=== PATIENT | male | born 1945 | race Caucasian/White ===

== ENCOUNTER 2016-12-12 05:51 | Day surgery (SDC) | payer OTHER ==
[~2016-12-12] VITALS: Ht 170.2 cm; Wt 99.8 kg
[~2016-12-12 05:51] MED LIST: AMLODIPINE BES2.5 MG PO; CARVEDILOL25 MG PO; CILOSTAZOL100 MG PO; IRBESARTAN300 MG PO; KLOR-CON M2020 MEQ PO; MONTELUKAST SOD10 MG PO; PROCARDIA XL60 MG PO; ROSUVASTATIN CA20 MG PO; SERTRALINE HCL50 MG PO; VITAMIN D31000 UNIT PO
== END 2016-12-12 16:00 | disposition home or self-care (01) ==
LOC: CATH 05:51
PROC: 047A3DZ Dilation of Left Renal Artery with Intraluminal Device, Percutaneous Approach (ICD-10-PCS; principal; 2016-12-12)
DX: I70.1 Atherosclerosis of renal artery (principal); N28.9 Disorder of kidney and ureter, unspecified; I10 Essential (primary) hypertension; E78.5 Hyperlipidemia, unspecified; I73.9 Peripheral vascular disease, unspecified
CPT/HCPCS: C1725; C1750; C1760; C1769; C1894; J1644; J2250; J3010; S0020

== ENCOUNTER → 2017-07-16 | Outpatient (CLI) | payer MEDICARE, OTHER | END | disposition home or self-care (01) | LOC: CDC 16:07 | DX: I45.4 Nonspecific intraventricular block (principal); R94.31 Abnormal electrocardiogram [ECG] [EKG] | CPT/HCPCS: 93000 ==

== ENCOUNTER → 2017-09-05 | Outpatient (CLI) | payer MEDICARE, OTHER | END | disposition home or self-care (01) | LOC: CDC 14:42 | DX: Z01.810 Encounter for preprocedural cardiovascular examination (principal); R94.31 Abnormal electrocardiogram [ECG] [EKG] | CPT/HCPCS: 93000 ==

== ENCOUNTER → 2017-10-23 | Outpatient (CLI) | payer MEDICARE, OTHER | END | disposition home or self-care (01) | LOC: CDC 15:58 | DX: Z01.810 Encounter for preprocedural cardiovascular examination (principal); R94.31 Abnormal electrocardiogram [ECG] [EKG] | CPT/HCPCS: 93000 ==

== ENCOUNTER 2017-12-16 22:19 | Inpatient (IN) | payer OTHER ==
[~2017-12-16] VITALS: Ht 170.2 cm; Wt 99.5 kg
[~2017-12-16 22:19] MED LIST changes: +FLOMAX0.4 MG PO; +HYDROCODON-ACE1 EAC7 PO; +KLOR-CON SPRIN10 MEQ PO; +PLAVIX75 MG PO; +PREDNISONE50 MG PO; +SINGULAIR10 MG PO
[2017-12-17] VITALS (11 sets, daily range): BP systolic 136–188; BP diastolic 60–81
[2017-12-17 14:09] LABS: HEMOGLOBIN 9.3 G/DL (12.5-16.6); MCH 27.5 PG (29.0-34.0); MCHC 32.1 G/DL (30.0-36.0); MCV 85.8 FL (86-99); PLATELET COUNT 196 K/uL (156-360); RBC DIS.WIDTH-CV 14.4 % (11.8-14.6); RBC DIS.WIDTH-SD 44.1 % (39-53); RED BLOOD COUNT 3.38 M/uL (4.00-5.50); WHITE BLOOD COUNT 5.3 K/uL (4.1-10.2)
[2017-12-17 14:32] LABS: TROP-I INTERPRETATION NEGATIVE; TROPONIN-I 0.03 ng/mL (0.0-0.30)
[2017-12-17 14:34] LABS: CHLORIDE 108 MEQ/L (99-109); CREATININE 2.9 MG/DL (0.6-1.3); GFR ESTIMATE (CALCULATED) 23 mL/min/ (58.99-99999); GLUCOSE 168 mg/dL (70-99); POTASSIUM 4.2 MEQ/L (3.7-5.4); SODIUM 141 MEQ/L (136-147); UREA NITROGEN (BUN) 35 mg/dL (9-23)
[2017-12-18] VITALS (10 sets, daily range): BP systolic 147–198; BP diastolic 61–103
[2017-12-18 04:58] LABS: HEMATOCRIT 27.5 % (38.0-50.0); HEMOGLOBIN 9.2 G/DL (12.5-16.6); MCH 28.3 PG (29.0-34.0); MCHC 33.5 G/DL (30.0-36.0); MCV 84.6 FL (86-99); PLATELET COUNT 193 K/uL (156-360); RBC DIS.WIDTH-CV 14.5 % (11.8-14.6); RBC DIS.WIDTH-SD 44.4 % (39-53); RED BLOOD COUNT 3.25 M/uL (4.00-5.50); WHITE BLOOD COUNT 6.1 K/uL (4.1-10.2)
[2017-12-18 05:06] LABS: CHLORIDE 105 mEq/L (99-109); POTASSIUM 3.7 mEq/L (3.7-5.4); SODIUM 140 mEq/L (136-147)
[2017-12-18 05:12] LABS: CREATININE 3.2 mg/dL (0.6-1.3); GFR ESTIMATE (CALCULATED) 20 mL/min/ (58.99-99999)
[2017-12-18 05:13] LABS: GLUCOSE 117 mg/dL (70-99); UREA NITROGEN (BUN) 41 mg/dL (9-23)
[2017-12-18 05:18] LABS: TROP-I INTERPRETATION NEGATIVE; TROPONIN-I 0.04 ng/mL (0.0-0.30)
[2017-12-19 03:30] VITALS: BP 158/69
[2017-12-19 05:34] LABS: BASOPHIL (%) 0.4 % (0-1); EOSINOPHIL (%) 4.4 % (0-5); EOSINOPHIL COUNT 0.3 K/uL (0-0.3); HEMATOCRIT 26.3 % (38.0-50.0); HEMOGLOBIN 8.5 G/DL (12.5-16.6); IMMATURE GRANULOCYTE (%) 0.4 % (0.0-0.7); LYMPHOCYTE (%) 16.4 % (15-42); LYMPHOCYTE COUNT 1.2 K/uL (1.0-2.8); MCH 27.7 PG (29.0-34.0); MCHC 32.3 G/DL (30.0-36.0); MCV 85.7 FL (86-99); MONOCYTE (%) 12.7 % (3-12); MONOCYTE COUNT 0.9 K/uL (0-0.8); NEUTROPHIL (%) 65.7 % (45-76); NEUTROPHIL COUNT 4.8 K/uL (1.8-6.4); PLATELET COUNT 158 K/uL (156-360); RBC DIS.WIDTH-CV 14.6 % (11.8-14.6); RBC DIS.WIDTH-SD 45.3 % (39-53); RED BLOOD COUNT 3.07 M/uL (4.00-5.50); WHITE BLOOD COUNT 7.3 K/uL (4.1-10.2)
[2017-12-19 08:50] VITALS: BP 139/65
[2017-12-19 11:00] VITALS: BP 150/69
[2017-12-19 16:00] VITALS: BP 165/75
[2017-12-19 22:14] VITALS: BP 125/61
[2017-12-20] VITALS (7 sets, daily range): BP systolic 116–163; BP diastolic 56–72
[2017-12-20 19:10] LABS: HEMATOCRIT 23.1 % (38.0-50.0); HEMOGLOBIN 7.7 G/DL (12.5-16.6); MCH 27.7 PG (29.0-34.0); MCHC 33.3 G/DL (30.0-36.0); MCV 83.1 FL (86-99); PLATELET COUNT 186 K/uL (156-360); RBC DIS.WIDTH-CV 14.3 % (11.8-14.6); RBC DIS.WIDTH-SD 43.4 % (39-53); RED BLOOD COUNT 2.78 M/uL (4.00-5.50); WHITE BLOOD COUNT 12.5 K/uL (4.1-10.2)
[2017-12-20 19:32] LABS: CHLORIDE 104 MEQ/L (99-109); GFR ESTIMATE (CALCULATED) 14 mL/min/ (58.99-99999); GLUCOSE 160 mg/dL (70-99); POTASSIUM 3.4 MEQ/L (3.7-5.4); SODIUM 134 MEQ/L (136-147); UREA NITROGEN (BUN) 50 mg/dL (9-23)
[2017-12-20 19:40] LABS: CREATININE 4.4 MG/DL (0.6-1.3)
[2017-12-21] VITALS (7 sets, daily range): BP systolic 110–135; BP diastolic 54–63
[2017-12-21 06:11] LABS: HEMATOCRIT 23.1 % (38.0-50.0); HEMOGLOBIN 7.7 G/DL (12.5-16.6); MCH 28.1 PG (29.0-34.0); MCHC 33.3 G/DL (30.0-36.0); MCV 84.3 FL (86-99); PLATELET COUNT 188 K/uL (156-360); RBC DIS.WIDTH-CV 14.5 % (11.8-14.6); RBC DIS.WIDTH-SD 44.4 % (39-53); RED BLOOD COUNT 2.74 M/uL (4.00-5.50); WHITE BLOOD COUNT 12.2 K/uL (4.1-10.2)
[2017-12-21 06:37] LABS: CHLORIDE 104 MEQ/L (99-109); CREATININE 4.7 MG/DL (0.6-1.3); GFR ESTIMATE (CALCULATED) 13 mL/min/ (58.99-99999); GLUCOSE 132 mg/dL (70-99); POTASSIUM 3.5 MEQ/L (3.7-5.4); SODIUM 135 MEQ/L (136-147); UREA NITROGEN (BUN) 57 mg/dL (9-23)
[2017-12-21 08:47] LABS: TROP-I INTERPRETATION NEGATIVE; TROPONIN-I 0.04 ng/mL (0.0-0.30)
[2017-12-22 04:19] VITALS: BP 140/74
[2017-12-22 05:45] LABS: BASOPHIL (%) 0.3 % (0-1); EOSINOPHIL (%) 0 % (0-5); HEMATOCRIT 25.8 % (38.0-50.0); HEMOGLOBIN 8.3 G/DL (12.5-16.6); IMMATURE GRANULOCYTE (%) 0.7 % (0.0-0.7); LYMPHOCYTE (%) 3.9 % (15-42); LYMPHOCYTE COUNT 0.5 K/uL (1.0-2.8); MCH 26.9 PG (29.0-34.0); MCHC 32.2 G/DL (30.0-36.0); MCV 83.5 FL (86-99); MONOCYTE (%) 2.6 % (3-12); MONOCYTE COUNT 0.3 K/uL (0-0.8); NEUTROPHIL (%) 92.5 % (45-76); NEUTROPHIL COUNT 10.6 K/uL (1.8-6.4); PLATELET COUNT 232 K/uL (156-360); RBC DIS.WIDTH-CV 14.5 % (11.8-14.6); RBC DIS.WIDTH-SD 43.8 % (39-53); RED BLOOD COUNT 3.09 M/uL (4.00-5.50); WHITE BLOOD COUNT 11.5 K/uL (4.1-10.2)
[2017-12-22 06:17] LABS: CHLORIDE 103 MEQ/L (99-109); CREATININE 5.4 MG/DL (0.6-1.3); GFR ESTIMATE (CALCULATED) 11 mL/min/ (58.99-99999); GLUCOSE 181 mg/dL (70-99); MAGNESIUM 2.3 mg/dl (1.3-2.7); PHOSPHORUS 6.6 mg/dL (2.5-4.9); SODIUM 137 MEQ/L (136-147); UREA NITROGEN (BUN) 70 mg/dL (9-23); URIC ACID 10.3 mg/dL (3.1-9.2)
[2017-12-22 06:19] LABS: POTASSIUM 4.5 MEQ/L (3.7-5.4)
[2017-12-22 06:21] LABS: TROP-I INTERPRETATION NEGATIVE; TROPONIN-I 0.07 ng/mL (0.0-0.30)
[2017-12-22 07:31] VITALS: BP 146/67
[2017-12-22 08:33] LABS: APPEARANCE CLOUDY ((CLEAR)); BILIRUBIN NEGATIVE; BLOOD SMALL; COLOR YELLOW ((YELLOW)); GLUCOSE (STRIP) 50; KETONES NEGATIVE; LEUKOCYTES NEGATIVE; NITRITE NEGATIVE; PROTEIN (STRIP) 100; SPECIFIC GRAVITY 1.012 (1.000-1.030); UROBILINOGEN 0.2 MG/DL (0.2-1.0)
[2017-12-22 08:53] LABS: RED BLOOD CELLS 0-5 /HPF (0-5); WHITE BLOOD CELLS 0-5 /HPF (0-5)
[2017-12-22 08:54] LABS: AMORPHOUS URATES CRYSTALS 1+; BACTERIA 1+ /HPF; COARSE GRANULAR CASTS 0-5 /LPF; EPITHELIAL CELLS 1+ /HPF; FINE GRANULAR CASTS 0-5 /LPF; HYALINE CASTS 0-5 /LPF; MUCUS NONE SEEN /LPF
[2017-12-22 08:55] LABS: UR CREATININE CONCENTRATION 116.8 MG/DL
[2017-12-22 10:49] VITALS: BP 143/67
[2017-12-22 16:10] VITALS: BP 161/70
[2017-12-22 19:56] VITALS: BP 161/73
[2017-12-22 23:37] VITALS: BP 156/69
[2017-12-23 03:51] VITALS: BP 134/88
[2017-12-23 07:45] VITALS: BP 179/75
[2017-12-23 10:04] LABS: CHLORIDE 109 MEQ/L (99-109); POTASSIUM 3.9 MEQ/L (3.7-5.4); SODIUM 142 MEQ/L (136-147)
[2017-12-23 10:11] LABS: CREATININE 4.8 MG/DL (0.6-1.3); GFR ESTIMATE (CALCULATED) 13 mL/min/ (58.99-99999); GLUCOSE 108 mg/dL (70-99); UREA NITROGEN (BUN) 66 mg/dL (9-23)
[2017-12-23 15:36] VITALS: BP 123/59
[2017-12-23 16:24] VITALS: BP 176/81
[2017-12-23 19:26] VITALS: BP 167/79
[2017-12-24] VITALS (7 sets, daily range): BP systolic 145–188; BP diastolic 74–83
[2017-12-24 06:21] LABS: BASOPHIL COUNT 0.1 K/uL (0-0.1); EOSINOPHIL (%) 4.6 % (0-5); EOSINOPHIL COUNT 0.4 K/uL (0-0.3); HEMATOCRIT 29.6 % (38.0-50.0); HEMOGLOBIN 9.8 G/DL (12.5-16.6); IMMATURE GRANULOCYTE (%) 1.2 % (0.0-0.7); LYMPHOCYTE (%) 15.1 % (15-42); LYMPHOCYTE COUNT 1.2 K/uL (1.0-2.8); MCH 27.8 PG (29.0-34.0); MCHC 33.1 G/DL (30.0-36.0); MCV 84.1 FL (86-99); MONOCYTE (%) 10.5 % (3-12); MONOCYTE COUNT 0.8 K/uL (0-0.8); NEUTROPHIL (%) 67.6 % (45-76); NEUTROPHIL COUNT 5.4 K/uL (1.8-6.4); RBC DIS.WIDTH-CV 14.7 % (11.8-14.6); RBC DIS.WIDTH-SD 45.1 % (39-53); RED BLOOD COUNT 3.52 M/uL (4.00-5.50)
[2017-12-24 06:30] LABS: CHLORIDE 108 MEQ/L (99-109); CREATININE 4.2 MG/DL (0.6-1.3); GFR ESTIMATE (CALCULATED) 15 mL/min/ (58.99-99999); GLUCOSE 101 mg/dL (70-99); POTASSIUM 3.4 MEQ/L (3.7-5.4); SODIUM 143 MEQ/L (136-147); UREA NITROGEN (BUN) 60 mg/dL (9-23)
[2017-12-24 06:47] LABS: PLATELET COUNT 327 K/uL (156-360)
[2017-12-25] VITALS (7 sets, daily range): BP systolic 145–187; BP diastolic 70–88
[2017-12-25 06:59] LABS: BASOPHIL (%) 0.8 % (0-1); BASOPHIL COUNT 0.1 K/uL (0-0.1); EOSINOPHIL (%) 5.5 % (0-5); EOSINOPHIL COUNT 0.4 K/uL (0-0.3); HEMATOCRIT 26.9 % (38.0-50.0); HEMOGLOBIN 8.7 G/DL (12.5-16.6); IMMATURE GRANULOCYTE (%) 1.3 % (0.0-0.7); LYMPHOCYTE (%) 16.6 % (15-42); LYMPHOCYTE COUNT 1.3 K/uL (1.0-2.8); MCH 27.3 PG (29.0-34.0); MCHC 32.3 G/DL (30.0-36.0); MCV 84.3 FL (86-99); MONOCYTE (%) 9.6 % (3-12); MONOCYTE COUNT 0.8 K/uL (0-0.8); NEUTROPHIL (%) 66.2 % (45-76); NEUTROPHIL COUNT 5.2 K/uL (1.8-6.4); PLATELET COUNT 309 K/uL (156-360); RBC DIS.WIDTH-CV 14.4 % (11.8-14.6); RBC DIS.WIDTH-SD 44.7 % (39-53); RED BLOOD COUNT 3.19 M/uL (4.00-5.50); WHITE BLOOD COUNT 7.8 K/uL (4.1-10.2)
[2017-12-25 07:22] LABS: CHLORIDE 108 MEQ/L (99-109); CREATININE 3.6 MG/DL (0.6-1.3); GFR ESTIMATE (CALCULATED) 18 mL/min/ (58.99-99999); GLUCOSE 151 mg/dL (70-99); POTASSIUM 3.4 MEQ/L (3.7-5.4); SODIUM 146 MEQ/L (136-147); UREA NITROGEN (BUN) 50 mg/dL (9-23)
[2017-12-26 00:10] VITALS: BP 160/74
[2017-12-26 03:23] VITALS: BP 166/72
[2017-12-26 05:07] LABS: BASOPHIL (%) 0.8 % (0-1); BASOPHIL COUNT 0.1 K/uL (0-0.1); EOSINOPHIL (%) 5.5 % (0-5); EOSINOPHIL COUNT 0.6 K/uL (0-0.3); HEMATOCRIT 31.2 % (38.0-50.0); HEMOGLOBIN 9.9 G/DL (12.5-16.6); IMMATURE GRANULOCYTE (%) 1.7 % (0.0-0.7); LYMPHOCYTE (%) 17.6 % (15-42); LYMPHOCYTE COUNT 1.8 K/uL (1.0-2.8); MCH 27.1 PG (29.0-34.0); MCHC 31.7 G/DL (30.0-36.0); MCV 85.5 FL (86-99); MONOCYTE (%) 7.6 % (3-12); MONOCYTE COUNT 0.8 K/uL (0-0.8); NEUTROPHIL (%) 66.8 % (45-76); NEUTROPHIL COUNT 6.7 K/uL (1.8-6.4); PLATELET COUNT 346 K/uL (156-360); RBC DIS.WIDTH-CV 14.6 % (11.8-14.6); RBC DIS.WIDTH-SD 45.3 % (39-53); RED BLOOD COUNT 3.65 M/uL (4.00-5.50); WHITE BLOOD COUNT 10.1 K/uL (4.1-10.2)
[2017-12-26 05:39] LABS: CHLORIDE 106 MEQ/L (99-109); CREATININE 3.4 MG/DL (0.6-1.3); GFR ESTIMATE (CALCULATED) 19 mL/min/ (58.99-99999); GLUCOSE 149 mg/dL (70-99); POTASSIUM 3.8 MEQ/L (3.7-5.4); SODIUM 143 MEQ/L (136-147); UREA NITROGEN (BUN) 44 mg/dL (9-23)
[2017-12-26 07:39] VITALS: BP 191/85
[2017-12-26 16:30] VITALS: BP 170/77
[2017-12-26 19:27] VITALS: BP 170/76
[2017-12-26 23:29] VITALS: BP 148/68
[2017-12-27 05:05] VITALS: BP 126/60
[2017-12-27 06:12] LABS: CHLORIDE 107 MEQ/L (99-109); CREATININE 3.3 MG/DL (0.6-1.3); GFR ESTIMATE (CALCULATED) 20 mL/min/ (58.99-99999); GLUCOSE 137 mg/dL (70-99); POTASSIUM 3.7 MEQ/L (3.7-5.4); SODIUM 145 MEQ/L (136-147); UREA NITROGEN (BUN) 37 mg/dL (9-23)
[2017-12-27 08:11] VITALS: BP 125/70
[2017-12-27 11:59] VITALS: BP 139/66
[2017-12-27 17:16] VITALS: BP 167/71
[2017-12-27 20:10] VITALS: BP 165/72
[2017-12-27 23:25] VITALS: BP 154/70
[2017-12-28 04:47] VITALS: BP 138/63
[2017-12-28 06:07] LABS: ALBUMIN 2.9 G/DL (3.2-4.8); CHLORIDE 106 MEQ/L (99-109); CREATININE 3.6 MG/DL (0.6-1.3); GFR ESTIMATE (CALCULATED) 18 mL/min/ (58.99-99999); GLUCOSE 107 mg/dL (70-99); PHOSPHORUS 5.3 mg/dL (2.5-4.9); POTASSIUM 4.4 MEQ/L (3.7-5.4); SODIUM 146 MEQ/L (136-147); UREA NITROGEN (BUN) 35 mg/dL (9-23)
[2017-12-28 08:01] VITALS: BP 150/65
[2017-12-28 11:59] VITALS: BP 144/67
[2017-12-28] MEDS ORDERED: APRESOLINE100 MG PO (12:55)
[2017-12-28] MEDS ORDERED: CLONIDINE HCL0.1 MG PO (12:55)
== END 2017-12-28 14:42 | disposition home or self-care (01) | DRG 253 ==
LOC: ENRESERV 22:19 → 4WEST 12-17 07:17 → 2SOUTH 12-17 07:17 → ENRESERV 12-17 09:26 → 2SOUTH 12-17 11:06 → ENRESERV 12-17 12:10 → 2SOUTH 12-17 13:47 → ENRESERV 12-17 15:58 → 4WEST 12-17 17:25 → ENRESERV 12-18 08:38 → 4EAST 12-18 13:49 → ENRESERV 12-19 18:07 → 3EAST 12-19 22:00
PROVIDERS: Internal Medicine Cardiovascular Disease; Internal Medicine Nephrology; Physician Assistant Surgical; Surgery; Thoracic Surgery (Cardiothoracic Vascular Surgery)
PROC: 30233N1 Transfusion of Nonautologous Red Blood Cells into Peripheral Vein, Percutaneous Approach (ICD-10-PCS; principal; 2017-12-17)
PROC: 041M09S Bypass Right Popliteal Artery to Lower Extremity Vein with Autologous Venous Tissue, Open Approach (ICD-10-PCS; 2017-12-17)
DX: I70.211 Atherosclerosis of native arteries of extremities with intermittent claudication, right leg (principal); R01.1 Cardiac murmur, unspecified; I10 Essential (primary) hypertension; I49.3 Ventricular premature depolarization; E78.5 Hyperlipidemia, unspecified; N17.9 Acute kidney failure, unspecified; I12.9 Hypertensive chronic kidney disease with stage 1 through stage 4 chronic kidney disease, or unspecified chronic kidney disease; E87.6 Hypokalemia; N18.4 Chronic kidney disease, stage 4 (severe); J02.9 Acute pharyngitis, unspecified; E66.9 Obesity, unspecified; N26.1 Atrophy of kidney (terminal); R12 Heartburn; N27.0 Small kidney, unilateral; I49.9 Cardiac arrhythmia, unspecified; R41.0 Disorientation, unspecified; E83.39 Other disorders of phosphorus metabolism; E79.0 Hyperuricemia without signs of inflammatory arthritis and tophaceous disease; R50.9 Fever, unspecified; Z88.6 Allergy status to analgesic agent; Z88.1 Allergy status to other antibiotic agents; Z91.09 Other allergy status, other than to drugs and biological substances; Z87.891 Personal history of nicotine dependence; Z68.39 Body mass index [BMI] 39.0-39.9, adult
CPT/HCPCS: 70450; 71045; 71046; 76770; 80048; 80069; 81003; 82550; 82570; 83735; 84100; 84156; 84484; 84550; 85025; 85027; 86850; 86900; 86901; 86920; 87040; 87070; 87077; 87086; 87186; 87205; 87641; 93005; 93306; 93975; 94799; 97530 GO; J0131; J0330; J0690; J1100; J1170; J1630; J1644; J1650; J1940; J2250; J2405; J2543; J2720; J3010; J7030; J7050; J7120; P9016; P9045

== ENCOUNTER 2018-01-06 20:46 | Inpatient (IN) | payer OTHER ==
[~2018-01-06] VITALS: Ht 170.2 cm; Wt 90.3 kg
[~2018-01-06 20:46] MED LIST changes: +APRESOLINE100 MG PO; +CLONIDINE HCL0.1 MG PO
[2018-01-06 21:40] LABS: HEMATOCRIT 28.7 % (38.0-50.0); HEMOGLOBIN 9.4 G/DL (12.5-16.6); MCH 27.8 PG (29.0-34.0); MCHC 32.8 G/DL (30.0-36.0); MCV 84.9 FL (86-99); PLATELET COUNT 256 K/uL (156-360); RBC DIS.WIDTH-CV 14.7 % (11.8-14.6); RBC DIS.WIDTH-SD 45.5 % (39-53); RED BLOOD COUNT 3.38 M/uL (4.00-5.50); WHITE BLOOD COUNT 14.1 K/uL (4.1-10.2)
[2018-01-06 21:49] LABS: INTER. NORMALIZED RATIO 1.3
[2018-01-06 21:53] LABS: ALBUMIN 3.5 g/dL (3.2-4.8); CHLORIDE 106 mEq/L (99-109); POTASSIUM 3.8 mEq/L (3.7-5.4); SODIUM 139 mEq/L (136-147)
[2018-01-06 21:56] LABS: GLUCOSE 126 mg/dL (70-99); TOTAL PROTEIN 6.3 g/dL (6.4-8.3)
[2018-01-06 21:57] LABS: TOTAL BILIRUBIN 0.4 mg/dL (0.0-1.0)
[2018-01-06 21:59] LABS: ALKALINE PHOSPHATASE 73 IU/L (3-129); CREATININE 3.7 mg/dL (0.6-1.3); GFR ESTIMATE (CALCULATED) 17 mL/min/ (58.99-99999)
[2018-01-06 22:00] LABS: UREA NITROGEN (BUN) 31 mg/dL (9-23)
[2018-01-06 22:01] LABS: AST (GOT) 9 IU/L (2-34); DIRECT BILIRUBIN 0.2 mg/dL (0.0-0.3)
[2018-01-06 22:02] LABS: ALT (GPT) 8 IU/L (3-49)
[2018-01-06 22:03] LABS: LIPASE 19 U/L (1.0-51.0)
[2018-01-06 22:04] LABS: TROP-I INTERPRETATION NEGATIVE; TROPONIN-I 0.03 ng/mL (0.0-0.30)
[2018-01-06 23:38] LABS: APPEARANCE CLOUDY ((CLEAR)); BILIRUBIN NEGATIVE; BLOOD MODERATE; COLOR YELLOW ((YELLOW)); GLUCOSE (STRIP) 50; KETONES NEGATIVE; LEUKOCYTES MODERATE; NITRITE POSITIVE; PROTEIN (STRIP) >=500; SPECIFIC GRAVITY 1.016 (1.000-1.030); UROBILINOGEN 0.2 MG/DL (0.2-1.0)
[2018-01-06 23:51] LABS: RED BLOOD CELLS TNTC /HPF (0-5); WHITE BLOOD CELLS 30-40 /HPF (0-5)
[2018-01-06 23:52] LABS: EPITHELIAL CELLS RARE /HPF; MUCUS RARE /LPF; UCUL ADDED? YES
[2018-01-06 23:53] LABS: BACTERIA 2+ /HPF; CELLULAR CASTS 0-5 /LPF; COARSE GRANULAR CASTS 0-5 /LPF; FINE GRANULAR CASTS 0-5 /LPF
[2018-01-07 05:48] VITALS: BP 178/76
[2018-01-07 06:18] LABS: HEMOGLOBIN 8.6 G/DL (12.5-16.6); MCH 27.4 PG (29.0-34.0); MCHC 31.9 G/DL (30.0-36.0); PLATELET COUNT 228 K/uL (156-360); RBC DIS.WIDTH-CV 14.7 % (11.8-14.6); RBC DIS.WIDTH-SD 46.5 % (39-53); RED BLOOD COUNT 3.14 M/uL (4.00-5.50); WHITE BLOOD COUNT 13.5 K/uL (4.1-10.2)
[2018-01-07 06:38] LABS: TROP-I INTERPRETATION NEGATIVE; TROPONIN-I 0.13 ng/mL (0.0-0.30)
[2018-01-07 06:53] LABS: CHLORIDE 105 MEQ/L (99-109); CREATININE 3.7 MG/DL (0.6-1.3); GFR ESTIMATE (CALCULATED) 17 mL/min/ (58.99-99999); GLUCOSE 118 mg/dL (70-99); POTASSIUM 3.9 MEQ/L (3.7-5.4); SODIUM 141 MEQ/L (136-147); UREA NITROGEN (BUN) 34 mg/dL (9-23)
[2018-01-07 08:25] VITALS: BP 188/84
[2018-01-07 10:50] LABS: TROP-I INTERPRETATION NEGATIVE
[2018-01-07 11:30] VITALS: BP 168/79
[2018-01-07 16:33] VITALS: BP 110/56
[2018-01-07] MEDS ORDERED: CATAPRES0.1 MG PO (19:23)
[2018-01-07] MEDS ORDERED: APRESOLINE100 MG PO (19:24)
[2018-01-07] MEDS ORDERED: POTASSIUM CHLO10 ME4 PO (19:25)
[2018-01-07] MEDS ORDERED: POTASSIUM CHLO20 ME2 PO (19:26)
[2018-01-07] MEDS ORDERED: LOZOL2.5 MG PO (19:27)
[2018-01-07] MEDS ORDERED: ZOLOFT50 MG PO (19:27)
[2018-01-07] MEDS ORDERED: TYLENOL EXTRA500 MG PO (19:28)
[2018-01-07] MEDS ORDERED: NASONEX17 GM BOTH NARES (19:28)
[2018-01-07 19:31] VITALS: BP 106/53
[2018-01-07 23:31] VITALS: BP 106/52
[2018-01-08 04:00] VITALS: BP 107/51
[2018-01-08 06:55] LABS: BASOPHIL (%) 0.6 % (0-1); BASOPHIL COUNT 0.1 K/uL (0-0.1); EOSINOPHIL (%) 2.1 % (0-5); EOSINOPHIL COUNT 0.2 K/uL (0-0.3); HEMOGLOBIN 8.8 G/DL (12.5-16.6); IMMATURE GRANULOCYTE (%) 0.5 % (0.0-0.7); LYMPHOCYTE (%) 15.2 % (15-42); LYMPHOCYTE COUNT 1.3 K/uL (1.0-2.8); MCH 27.9 PG (29.0-34.0); MCHC 32.6 G/DL (30.0-36.0); MCV 85.7 FL (86-99); MONOCYTE (%) 8.9 % (3-12); MONOCYTE COUNT 0.8 K/uL (0-0.8); NEUTROPHIL (%) 72.7 % (45-76); NEUTROPHIL COUNT 6.2 K/uL (1.8-6.4); PLATELET COUNT 216 K/uL (156-360); RBC DIS.WIDTH-CV 14.8 % (11.8-14.6); RBC DIS.WIDTH-SD 46.3 % (39-53); RED BLOOD COUNT 3.15 M/uL (4.00-5.50); WHITE BLOOD COUNT 8.5 K/uL (4.1-10.2)
[2018-01-08 07:12] VITALS: BP 104/51
[2018-01-08 07:18] LABS: CHLORIDE 104 MEQ/L (99-109); CREATININE 4.1 MG/DL (0.6-1.3); GFR ESTIMATE (CALCULATED) 15 mL/min/ (58.99-99999); GLUCOSE 92 mg/dL (70-99); POTASSIUM 3.4 MEQ/L (3.7-5.4); SODIUM 139 MEQ/L (136-147); UREA NITROGEN (BUN) 42 mg/dL (9-23)
[2018-01-08 16:00] VITALS: BP 98/56
[2018-01-08 20:07] VITALS: BP 95/49
[2018-01-08 23:55] VITALS: BP 120/56
[2018-01-09 03:42] VITALS: BP 117/58
[2018-01-09 07:32] VITALS: BP 140/64
[2018-01-09 08:02] LABS: BASOPHIL (%) 0.9 % (0-1); EOSINOPHIL (%) 4.4 % (0-5); EOSINOPHIL COUNT 0.2 K/uL (0-0.3); HEMATOCRIT 25.6 % (38.0-50.0); HEMOGLOBIN 8.2 G/DL (12.5-16.6); IMMATURE GRANULOCYTE (%) 0.4 % (0.0-0.7); LYMPHOCYTE (%) 22.2 % (15-42); MCH 27.2 PG (29.0-34.0); MONOCYTE (%) 13.7 % (3-12); MONOCYTE COUNT 0.6 K/uL (0-0.8); NEUTROPHIL (%) 58.4 % (45-76); NEUTROPHIL COUNT 2.7 K/uL (1.8-6.4); PLATELET COUNT 224 K/uL (156-360); RBC DIS.WIDTH-CV 14.6 % (11.8-14.6); RBC DIS.WIDTH-SD 45.6 % (39-53); RED BLOOD COUNT 3.01 M/uL (4.00-5.50); WHITE BLOOD COUNT 4.5 K/uL (4.1-10.2)
[2018-01-09 08:23] LABS: CHLORIDE 106 MEQ/L (99-109); CREATININE 4.1 MG/DL (0.6-1.3); GFR ESTIMATE (CALCULATED) 15 mL/min/ (58.99-99999); GLUCOSE 96 mg/dL (70-99); POTASSIUM 3.6 MEQ/L (3.7-5.4); SODIUM 140 MEQ/L (136-147); UREA NITROGEN (BUN) 46 mg/dL (9-23)
[2018-01-09 11:13] VITALS: BP 112/53
[2018-01-09] MEDS ORDERED: BACTRIM,SEPT1 TABLE1 PO (12:26)
[2018-01-09] MEDS ORDERED: NIFEDIPINE20 MG PO (12:58)
[2018-01-09 13:19] LABS: HEMATOCRIT 27.2 % (38.0-50.0); HEMOGLOBIN 8.9 G/DL (12.5-16.6)
[2018-01-09 16:37] VITALS: BP 124/60
[2018-01-09 19:03] VITALS: BP 156/70
[2018-01-10 03:32] VITALS: BP 138/54
[2018-01-10 06:05] LABS: BASOPHIL (%) 1.4 % (0-1); BASOPHIL COUNT 0.1 K/uL (0-0.1); EOSINOPHIL (%) 5.8 % (0-5); EOSINOPHIL COUNT 0.2 K/uL (0-0.3); HEMATOCRIT 26.7 % (38.0-50.0); HEMOGLOBIN 8.4 G/DL (12.5-16.6); IMMATURE GRANULOCYTE (%) 0.5 % (0.0-0.7); LYMPHOCYTE (%) 28.6 % (15-42); MCH 26.5 PG (29.0-34.0); MCHC 31.5 G/DL (30.0-36.0); MCV 84.2 FL (86-99); MONOCYTE (%) 15.4 % (3-12); MONOCYTE COUNT 0.6 K/uL (0-0.8); NEUTROPHIL (%) 48.3 % (45-76); NEUTROPHIL COUNT 1.8 K/uL (1.8-6.4); PLATELET COUNT 237 K/uL (156-360); RBC DIS.WIDTH-CV 14.5 % (11.8-14.6); RBC DIS.WIDTH-SD 44.8 % (39-53); RED BLOOD COUNT 3.17 M/uL (4.00-5.50); WHITE BLOOD COUNT 3.6 K/uL (4.1-10.2)
[2018-01-10 06:30] LABS: CHLORIDE 111 MEQ/L (99-109); CREATININE 3.9 MG/DL (0.6-1.3); GFR ESTIMATE (CALCULATED) 16 mL/min/ (58.99-99999); GLUCOSE 104 mg/dL (70-99); POTASSIUM 3.7 MEQ/L (3.7-5.4); SODIUM 145 MEQ/L (136-147); UREA NITROGEN (BUN) 44 mg/dL (9-23)
[2018-01-10 07:15] VITALS: BP 166/72
[2018-01-10 11:28] VITALS: BP 128/58
== END 2018-01-10 12:22 | disposition home or self-care (01) | DRG 872 ==
LOC: EME → EDBD 20:46 → 5EAST 01-07 01:41 → EDOF 01-07 01:41 → ENRESERV 01-07 01:46 → 5EAST 01-07 03:33 → ENPENDDIS 01-10 → 5EAST 01-10 12:22
PROVIDERS: Emergency Medicine; Hospitalist
DX: A41.9 Sepsis, unspecified organism (principal); I12.0 Hypertensive chronic kidney disease with stage 5 chronic kidney disease or end stage renal disease; N18.5 Chronic kidney disease, stage 5; I42.0 Dilated cardiomyopathy; I27.20 Pulmonary hypertension, unspecified; B96.20 Unspecified Escherichia coli [E. coli] as the cause of diseases classified elsewhere; I08.1 Rheumatic disorders of both mitral and tricuspid valves; I16.0 Hypertensive urgency; I25.2 Old myocardial infarction; N30.01 Acute cystitis with hematuria; N40.0 Benign prostatic hyperplasia without lower urinary tract symptoms; Z16.24 Resistance to multiple antibiotics; Z87.891 Personal history of nicotine dependence; E66.9 Obesity, unspecified; Z16.12 Extended spectrum beta lactamase (ESBL) resistance; I25.10 Atherosclerotic heart disease of native coronary artery without angina pectoris; D63.8 Anemia in other chronic diseases classified elsewhere; E11.22 Type 2 diabetes mellitus with diabetic chronic kidney disease; E11.51 Type 2 diabetes mellitus with diabetic peripheral angiopathy without gangrene; E78.5 Hyperlipidemia, unspecified; I70.1 Atherosclerosis of renal artery; Z68.31 Body mass index [BMI] 31.0-31.9, adult
CPT/HCPCS: 71046; 74176; 78452; 80048; 80076; 81003; 82272; 83605; 83690; 84484; 85014; 85018; 85025; 85027; 85610; 85730; 87040; 87077; 87086; 87186; 87502; 93005; 93017; 99281; 99285; A9500; J0696; J1335; J1644; J2785; J7030; J7050

== ENCOUNTER → 2018-04-09 | Outpatient (CLI) | payer MEDICARE, OTHER ==
[~2018-04-09] MED LIST changes: +BACTRIM,SEPT1 TABLE1 PO; +CATAPRES0.1 MG PO; +LOZOL2.5 MG PO; +NASONEX17 GM BOTH NARES; +NIFEDIPINE20 MG PO; +POTASSIUM CHLO10 ME4 PO; +POTASSIUM CHLO20 ME2 PO; +TYLENOL EXTRA500 MG PO; +ZOLOFT50 MG PO
== END | disposition home or self-care (01) ==
LOC: CDC 10:08
DX: R94.31 Abnormal electrocardiogram [ECG] [EKG] (principal)
CPT/HCPCS: 93000

== ENCOUNTER → 2018-06-08 | Outpatient (CLI) | payer MEDICARE, OTHER | END | disposition home or self-care (01) | LOC: CDC 13:05 | DX: Z01.810 Encounter for preprocedural cardiovascular examination (principal); I49.3 Ventricular premature depolarization; R94.31 Abnormal electrocardiogram [ECG] [EKG] | CPT/HCPCS: 93000 ==